=== PATIENT | female | born 1985 | race American Indian/Alaskan Native ===

== ENCOUNTER 2017-04-02 20:45 | Outpatient (CLI) | payer MEDICAID ==
[2017-04-02 21:43] VITALS: BP 120/71
--- NOTE | 2017-04-02 23:40 | Progress Note ---
Assessment and Plan A: at 38 weeks, 3 days gestation. False labor. P: Discussed signs of labor and warning signs of late with patient. Advised patient to perform daily movement counting. Follow up with [facility] this week. Return promptly if labor starts or if any problems. Subjective - Subjective Date of service: 04/02/17 Principal diagnosis: at 38 weeks, 3 days gestation; false labor Interval history: 31 year old female presents to rule out labor. Patient reports she has had intermittent contractions since yesterday. Patient denies leaking of fluid or vaginal bleeding. Pt. reports active movement. Patient reports: movement normal, contractions, no loss of fluid, no vaginal bleeding Objective - Vital Signs Vital Signs: Vital Signs - 12hr 04/02/17 21:45 Pulse Rate 75 Blood Pressure 120/71 - Exam Breasts: deferred Abdomen: Present: normal appearance, soft. Absent: distention, tenderness, guarding, rigidity Uterus: Present: normal. Absent: bogginess, tenderness FHR: category 1 Uterine Contraction Monitor Mode: External Cervical Dilatation: 3 Cervical Effacement Percentage: 70 station: -2 Uterine Contraction Pattern: Absent Extremities: normal
== END 2017-04-02 23:30 | disposition left against medical advice (07) ==
LOC: TRG 20:45
PROVIDERS: ATTEND Obstetrics & Gynecology
DX: O47.1 False labor at or after 37 completed weeks of gestation (principal); Z3A.38 38 weeks gestation of pregnancy

== ENCOUNTER 2017-04-17 11:25 | Inpatient (IN) | payer MEDICAID ==
[2017-04-17] MEDS ORDERED: MAGNESIUM SULFATE 4GM/100ML 4 GM/100 ML BAG IV ONE ×3 (12:42→15:08)
[2017-04-17] MEDS ORDERED: TYLENOL ONE (12:44)
[2017-04-17 12:58] LABS: Basophils % (Auto) 0.6 % (0.0-1.8); Eosinophils % (Auto) 1.9 % (0.0-4.3); Hematocrit 35.1 % (30.3-42.9); Hemoglobin 11.5 gm/dl (10.1-14.3); Mean Corpuscular HGB Conc 33 % (30-34); Mean Corpuscular Hemoglobin 30 pg (28-32); Mean Corpuscular Volume 92 fl (79-97); Platelet Count 145 K/mm3 (140-440); Red Blood Count 3.82 M/mm3 (3.65-5.03); Red Cell Distribution Width 14.7 % (13.2-15.2); White Blood Count 7.7 K/mm3 (4.5-11.0)
[2017-04-17] MEDS ORDERED: TYLENOL PO ONE (13:00)
[2017-04-17] MEDS ORDERED: MAGNESIUM SULFATE 40GM/1000ML 40 GM/1,000 ML BAG IV SCH (13:00)
[2017-04-17] MEDS ORDERED: LACTATED RINGERS 1,000 ML ONE (13:03)
[2017-04-17 13:20] LABS: Alanine Aminotransferase 63 units/L (7-56); Albumin 3.9 g/dL (3.9-5); Albumin/Globulin Ratio 1.2 %; Alkaline Phosphatase 84 units/L (35-129); Anion Gap 16 mmol/L; BUN/Creatinine Ratio 16; Blood Urea Nitrogen 11 mg/dL (7-17); Calcium 8.9 mg/dL (8.4-10.2); Carbon Dioxide 26 mmol/L (22-30); Chloride 103.1 mmol/L (98-107); Glucose 98 mg/dL (65-100); Lactate Dehydrogenase 420 units/L (91-180); Potassium 3.5 mmol/L (3.6-5.0); Sodium 142 mmol/L (137-145); Total Protein 7.2 g/dL (6.3-8.2)
--- NOTE | 2017-04-17 15:27 | History and Physical Report ---
History of Present Illness Date of admission: 04/17/17 12:00 Chief complaint: Elevated BP, RUQ pain, headaches for 2 days. History of present illness: Patient is a 32 year old who is S/P 2 weeks ago who presented to the office complaining of severe headache, RUQ pain radiating to her upper back which started yesterday morning, and blurry vision last night. She took tylenol which did not help. She came to the office to be evaluated. She has a history of gestational HTN and pre-eclampsia in prior pregnancies, but her most recent and delivery was uneventful. In the office, her BP was 190/93, repeat was 159/90. She was sent to the hospital for admission and treatment for pre- eclampsia. Past History Past Medical History: other (sickle cell trait, anemia, gest DM) Past Surgical History: other (Laparoscopy for ectopic-salpingiectomy) [employer] History: abnormal PAP smear (cervical dysplasia), herpes - Obstetrical History : 9 Para: 7 Number of Living Children: 7 Medications and Allergies Allergies Allergy/AdvReac Type Severity Reaction Status Date / Time No Known Allergies Allergy Verified 04/03/17 02:23 Home Medications Medication Instructions Recorded Confirmed Last Taken Type No Known Home Medications [No 04/03/17 04/03/17 Unknown History Reported Home Medications] Active Meds: Active Medications Magnesium Sulfate (Magnesium Sulfate 40gm/1000ml) 40 gm in 1,000 mls @ 50 mls/ hr IV DIRECT ELIZA PRN Reason: 2 GM/HR Last Admin: 04/17/17 13:39 Dose: 2 gm/hr, 50 mls/hr Magnesium Sulfate (Magnesium Sulfate 4gm/100ml) 4 gm in 100 mls @ 25 mls/hr IV ONCE ONE Stop: 04/17/17 16:41 Last Admin: 04/17/17 13:10 Dose: 25 mls/hr Magnesium Sulfate (Magnesium Sulfate 4gm/100ml) 4 gm in 100 mls @ 25 mls/hr IV ONCE ONE Stop: 04/17/17 17:53 Magnesium Sulfate (Magnesium Sulfate 4gm/100ml) 4 gm in 100 mls @ 0 mls/hr IV ONCE ONE PRN Reason: Per Protocol Stop: 04/17/17 15:09 - Vital Signs Vital signs: Vital Signs Temp Pulse BP 98.1 F 100 H 159/79 04/17/17 12:26 04/17/17 12:26 04/17/17 12:26 Temp Pulse Resp BP Pulse Ox 98.2 F 62 18 162/90 04/17/17 13:35 04/17/17 13:35 04/17/17 12:30 04/17/17 13:35 - Physical Exam Cardiovascular: Normal S1, Normal S2 Lungs: Positive: Clear to auscultation Abdomen: Positive: tenderness (in RUQ with rebound) Deep Tendon Reflex Grade: Normal but brisk +3 Results Result Diagrams: 04/17/17 12:35 04/17/17 12:35 Abnormal lab results 04/17/17 04/17/17 Range/Units 12:35 12:35 [place] % (Auto) 8.2 H (0.0-7.3) % Potassium 3.5 L (3.6-5.0) mmol/L Uric Acid 8.0 H (3.5-7.6) mg/dL ALT 63 H (7-56) units/L Lactate Dehydrogenase 420 H (91-180) units/L All other labs normal. Assessment and Plan - Patient Problems (1) Severe pre-eclampsia, Current Visit: Yes Status: Acute Plan to address problem: Toxemia labs ordered. IV hydration. Seizure precautions. Start Magnesium sulfate. Monitor Mg level and urine output. Monitor DTRs. Monitor BP. Will start anti-hypertensive meds if BP remains elevated.
[2017-04-17 18:01] LABS: Bilirubin,Urine NEG (Negative); Blood,Urine SM (Negative); Ketones,Urine NEG (Negative); Leukocyte Esterase,Urine TR (Negative); Mucus,Urine FEW /HPF; Nitrite,Urine NEG (Negative); Protein,Urine <15 mg/dL mg/dL (Negative); Urobilinogen,Urine < 2.0 mg/dL (<2.0)
[2017-04-17] MEDS ORDERED: APRESOLINE IV PRN (18:10)
[2017-04-17] MEDS ORDERED: NORMODYNE IV PRN (18:12)
--- NOTE | 2017-04-17 18:31 | Event Note ---
Date: 04/17/17 Patient seen, complaining of a headache, no chest pain or SOB. BP currently ~ 150/80. We'll start antihypertensives at this time, await mag level.
[2017-04-17] MEDS: TYLENOL PO PRN (20:01)
[2017-04-17] MEDS: NORMODYNE PO SCH (21:13)
[2017-04-18] MEDS ORDERED: FIORICET PO ONE (00:39)
[2017-04-18] MEDS: LACTATED RINGERS 1,000 ML IV SCH ×2 (01:03→12:49)
--- NOTE | 2017-04-18 04:59 | Event Note ---
Date: 04/18/17 Magnesium reduced to 1 g per hour
[2017-04-18] MEDS: TYLENOL PO PRN (07:17)
--- NOTE | 2017-04-18 08:49 | Progress Note ---
Assessment and Plan - Patient Problems (1) Severe pre-eclampsia, Current Visit: Yes Status: Acute Plan to address problem: Patient is on magnesium and PO anti-HTN meds. Will continue BP monitoring. Will discontinue Mg after 24 hours. Subjective - Subjective Date of service: 04/18/17 Principal diagnosis: post pre-eclampsia Interval history: Patient is a 32 year old who is S/P 2 weeks ago who presented to the office complaining of severe headache, RUQ pain radiating to the upper back , and blurry vision. In the office, her BP was 190/93, repeat was 159/90. She was sent to the hospital for admission and treatment for post pre- eclampsia. She was given Mg sulfate and she later received PO antihypertensive. Her toxemia labs were abnormal. This AM, she states the RUQ pain has lessened but she still c/o headache. BP has been stable during the night. Objective - Vital Signs Vital Signs: Vital Signs - 12hr 04/17/17 04/17/17 04/18/17 21:13 22:10 01:59 Temperature 98.4 F Pulse Rate 70 71 69 Respiratory 18 18 Rate Blood Pressure 148/74 Blood Pressure 141/81 129/62 [Left] 04/18/17 04/18/17 04/18/17 02:20 04:30 06:15 Temperature 98.5 F Pulse Rate 70 78 Respiratory 18 18 18 Rate Blood Pressure Blood Pressure 128/83 139/91 134/83 [Left] - Exam Cardiovascular: Normal S1, Normal S2 - Labs Labs: Abnormal Labs 04/17/17 04/17/17 04/17/17 12:35 12:35 17:59 [place] % (Auto) 8.2 H Potassium 3.5 L Uric Acid 8.0 H Magnesium 4.70 H ALT 63 H Lactate Dehydrogenase 420 H 04/18/17 04/18/17 00:52 05:58 [place] % (Auto) Potassium Uric Acid Magnesium 5.90 H 5.20 H ALT Lactate Dehydrogenase Laboratory Results - last 24 hr 04/17/17 04/17/17 04/17/17 12:35 12:35 16:30 WBC 7.7 RBC 3.82 Hgb 11.5 Hct 35.1 MCV 92 MCH 30 MCHC 33 RDW 14.7 Plt Count 145 Lymph % (Auto) 21.5 [place] % (Auto) 8.2 H Eos % (Auto) 1.9 Baso % (Auto) 0.6 Lymph # 1.7 [place] # 0.6 Eos # 0.1 Baso # 0.0 Seg Neutrophils % 67.8 Seg Neutrophils # 5.2 Sodium 142 Potassium 3.5 L Chloride 103.1 Carbon Dioxide 26 Anion Gap 16 BUN 11 Creatinine 0.7 Estimated GFR > 60 BUN/Creatinine Ratio 16 Glucose 98 Uric Acid 8.0 H Calcium 8.9 Magnesium Total Bilirubin 0.50 AST 32 ALT 63 H Alkaline Phosphatase 84 Lactate Dehydrogenase 420 H Total Protein 7.2 Albumin 3.9 Albumin/Globulin Ratio 1.2 Urine Color Straw Urine Turbidity Clear Urine pH 7.0 Ur Specific [place] 1.010 Urine Protein <15 mg/dl Urine Glucose (UA) Neg Urine Ketones Neg Urine Blood Sm Urine Nitrite Neg Urine Bilirubin Neg Urine Urobilinogen < 2.0 Ur Leukocyte Esterase Tr Urine WBC (Auto) 2.0 Urine RBC (Auto) 3.0 Urine Mucus Few 04/17/17 04/18/17 04/18/17 17:59 00:52 05:58 WBC RBC Hgb Hct MCV MCH MCHC RDW Plt Count Lymph % (Auto) [place] % (Auto) Eos % (Auto) Baso % (Auto) Lymph # [place] # Eos # Baso # Seg Neutrophils % Seg Neutrophils # Sodium Potassium Chloride Carbon Dioxide Anion Gap BUN Creatinine Estimated GFR BUN/Creatinine Ratio Glucose Uric Acid Calcium Magnesium 4.70 H 5.90 H 5.20 H Total Bilirubin AST ALT Alkaline Phosphatase Lactate Dehydrogenase Total Protein Albumin Albumin/Globulin Ratio Urine Color Urine Turbidity Urine pH Ur Specific [place] Urine Protein Urine Glucose (UA) Urine Ketones Urine Blood Urine Nitrite Urine Bilirubin Urine Urobilinogen Ur Leukocyte Esterase Urine WBC (Auto) Urine RBC (Auto) Urine Mucus
[2017-04-18] MEDS ORDERED: IMITREX PO NR (09:30)
[2017-04-18] MEDS: NORMODYNE PO SCH ×2 (11:25→21:21)
[2017-04-19] MEDS: NORMODYNE PO SCH (08:55)
--- NOTE | 2017-04-19 08:58 | Discharge Summary ---
Providers - Providers Date of Admission: 04/17/17 12:00 Date of discharge: 04/19/17 Attending physician: CHARLENE BAZZI MD Primary care physician: CHARLENE BAZZI MD Hospitalization Reason for admission: other (post-pertum pre-eclampsia) Discharge diagnosis: other (post pre-eclampsia) Disposition: [id number] STILL A PATIENT - Discharge Diagnoses (1) Severe pre-eclampsia, Status: Acute Plan - Discharge Medications Prescriptions: Ketorolac [Toradol] 455 mg PO Q4HR PRN #20 tablet PRN Reason: Pain Labetalol [Normodyne TAB] 200 mg PO BID #60 tablet - Provider Discharge Summary Additional instructions: [] Smoking cessation referral if applicable(refer to patient education folder for contact #) [] Refer to [facility]'s [facility] Booklet Call your doctor immediately for: * Fever > 100.5 * Heavy vaginal bleeding ( >1 pad per hour) * Severe persistent headache * Shortness of breath * Reddened, hot, painful area to leg or breast * Drainage or odor from incision. * Keep incision clean and dry at all times and follow doctor's instructions regarding bathing/showering - Follow up plan Follow up: CHARLENE BAZZI MD [Primary Care Provider] - 7 Days
--- NOTE | 2017-04-19 09:02 | Progress Note ---
Assessment and Plan - Patient Problems (1) Severe pre-eclampsia, Current Visit: Yes Status: Acute Plan to address problem: Patient is S/P magnesium sulfate and is currently PO anti-HTN meds. BP has been stable. If labs are normal, will discharged pt home. (2) RUQ abdominal pain Current Visit: Yes Status: Acute Plan to address problem: Repeat LFTs today. RUQ sonogram. Subjective - Subjective Date of service: 04/19/17 Principal diagnosis: post pre-eclampsia Interval history: Patient is a 32 year old who is S/P 2 weeks ago who presented to the office complaining of severe headache, RUQ pain radiating to the upper back , and blurry vision. In the office, her BP was 190/93, repeat was 159/90. She was sent to the hospital for admission and treatment for post pre- eclampsia. She was given Mg sulfate and she later received PO antihypertensive. Her toxemia labs were abnormal. Yesterday,she recieved imitrex for migraines headache. BP has been stable. Objective - Vital Signs Vital Signs: Vital Signs - 12hr 04/18/17 04/18/17 04/19/17 21:21 23:50 05:10 Temperature 98.7 F 98.9 F Pulse Rate 68 76 71 Respiratory 20 20 Rate Blood Pressure 150/85 Blood Pressure 141/76 141/75 [Right] 04/19/17 08:55 Temperature Pulse Rate 70 Respiratory Rate Blood Pressure 155/72 Blood Pressure [Right] - Labs Labs: Abnormal Labs 04/17/17 04/17/17 04/17/17 12:35 12:35 17:59 [place] % (Auto) 8.2 H Potassium 3.5 L Uric Acid 8.0 H Magnesium 4.70 H ALT 63 H Lactate Dehydrogenase 420 H 04/18/17 04/18/17 04/18/17 00:52 05:58 12:57 [place] % (Auto) Potassium Uric Acid Magnesium 5.90 H 5.20 H 4.60 H ALT Lactate Dehydrogenase 04/18/17 17:57 [place] % (Auto) Potassium Uric Acid Magnesium 3.60 H ALT Lactate Dehydrogenase Laboratory Results - last 24 hr 04/18/17 04/18/17 12:57 17:57 Magnesium 4.60 H 3.60 H
[2017-04-19 10:00] LABS: Alanine Aminotransferase 38 units/L (7-56); Alkaline Phosphatase 82 units/L (35-129)
[2017-04-19 12:51] VITALS: BP 169/83
== END 2017-04-19 11:49 | disposition home or self-care (01) | DRG 776 ==
LOC: 3A 11:25 → UNDOADMIN 11:25 → OB 12:00
PROVIDERS: ADMIT Obstetrics & Gynecology; ATTEND Obstetrics & Gynecology
DX: O11.5 Pre-existing hypertension with pre-eclampsia, complicating the puerperium (principal); O99.355 Diseases of the nervous system complicating the puerperium; O24.93 Unspecified diabetes mellitus in the puerperium; G43.909 Migraine, unspecified, not intractable, without status migrainosus
CPT/HCPCS: 36415; 80053; 81001; 83615; 83735; 84075; 84450; 84460; 84550; 85025; J3475; J7120